=== PATIENT | male | born 1985 | race Caucasian/White ===

== ENCOUNTER 2023-11-05 09:02 | Emergency (ER) | payer BC ==
[2023-11-05] MEDS: Ibuprofen 800 MG Tab PO ONE (10:02)
== END 2023-11-05 11:10 | disposition home or self-care (01) ==
LOC: MW.ED 09:02
DX: M25.571 Pain in right ankle and joints of right foot (principal); F17.210 Nicotine dependence, cigarettes, uncomplicated
CPT/HCPCS: 73610; 73630; 99283; A9270